=== PATIENT | male | born 2000 | race Caucasian/White ===

== ENCOUNTER → 2024-06-03 | Outpatient (CLI) | payer OTHER, SELFPAY ==
--- NOTE | 2024-06-03 09:18 | DI.ECHO.S_ITS ---
[facility] : : [address] : : [place] : : [id number] : : Phone: [phone] Echocardiogram Report + + :Name: JOSE DIETZ Study Date: 06/03/2024 Height: 73 in : :Hospital ReadingLocation: Weight: 180 lb : : Gender: Male BSA: 2.1 m2 : :: 2000 Age: 23 yrs BP: 130/71 mmHg: :Reason For Study: CHRONIC ISCHEMIC HEART DISEASE : :Ordering Physician: ALLY, : :MARIN Performed By: Maria Del Carmen Rodriguez : :Referring: MARIN CANALES : + + Interpretation Summary 1. The left ventricular contractility is normal. Estimated ejection fraction is greater than 55% with no segmental wall motion abnormalities. No LVH. Normal diastolic function. 2. The right ventricular contractility is normal. 3. All cardiac chambers are of normal size. 4. No significant valvular abnormalities. 5. No obvious intracardiac shunts. 6. No obvious intracardiac masses nor thrombi. 7. No hemodynamically significant pericardial effusion. 8. No echocardiographic evidence of elevated right-sided filling pressures. Conclusion: Normal biventricular function with no significant structural abnormalities. Procedure: A two-dimensional transthoracic echocardiogram with color flow and Doppler was performed. The study quality was technically adequate. There is no prior echocardiogram noted for this patient. The patient was in sinus bradycardia with heart rates between 53-63 bpm during the exam. Left Ventricle: The left ventricle is normal in size and wall thickness. The ejection fraction is estimated to be 55-60%. Right Ventricle: The right ventricle is normal in size and function. Atria: The left atrial size is normal. Right atrial size is normal. There is no Doppler evidence for an interatrial shunt. Mitral Valve: The mitral valve is normal in structure and function. There is no mitral regurgitation noted. Aortic Valve: The aortic valve is trileaflet. The aortic valve opens well. There is no aortic valve stenosis. No aortic regurgitation is present. Tricuspid Valve: The tricuspid valve is normal in structure and function. There is trace tricuspid regurgitation. Pulmonic Valve: The pulmonic valve is not well visualized. There is no pulmonic valvular regurgitation. Great Vessels: The aortic root is normal size. The dimensions of the ascending aorta are normal. The IVC is dilated (diameter is greater than 2.1 cm) yet it collapses greater than 50% with a sniff. This suggests a right atrial pressure of 8 mm Hg. Pericardium/ Pleura There is no pericardial effusion. There is no pleural effusion. MMode/2D Measurements & Calculations LVIDd: 5.2 cm LVOT diam: 2.0 cm LVIDs: 3.5 cm Ao root diam: 3.0 cm FS: 33.2 % asc Aorta Diam: 2.9 cm EPSS: 1.1 cm Ao Arch Diam (Prox Trans): 2.2 cm IVSd: 0.86 cm LVPWd: 0.88 cm LV manuel. diameter/BSA (cm/m^2): 2.5 LV sys. diameter/BSA (cm/m^2): 1.7 LA A2 area: 18.2 cm2 RA long axis: 4.7 cm LA A4 area: 14.1 cm2 RA area: 17.5 cm2 LA length (vol): 5.0 cm RA vol: 56.1 ml LA vol: 43.6 ml RA : 27.3 ml/m2 LA vol index: 21.2 ml/m2 IVC diam: 2.4 cm RVD1 (basal): 3.8 cm RVD2 (mid): 3.8 cm TAPSE: 2.1 cm Doppler Measurements & Calculations Ao V2 max: 119.6 cm/sec LVOT Max Denzel: 96.7 cm/sec Ao V2 mean: 79.7 cm/sec LV V1 max P.7 mmHg Ao max P.7 mmHg LV V1 VTI: 17.4 cm Ao mean P.9 mmHg PRICILLA(I,D): 2.4 cm2 Ao V2 VTI: 23.7 cm PRCIILLA(V,D): 2.6 cm2 sev ratio: 0.74 PRICILLA indexed to BSA (cm^2/m^2): 1.2 MV E max denzel: 79.8 cm/sec PA V2 max: 80.2 cm/sec MV A max denzel: 39.1 cm/sec PA V2 mean: 60.5 cm/sec MV E/A: 2.0 PA mean P.6 mmHg Med Peak E' Denzel: 13.6 cm/sec PA pr(Accel): 25.9 mmHg E/E' med: 5.8 Lat Peak E' Denzel: 16.8 cm/sec E/E' lat: 4.8 E/e' average: 5.3 MV dec time: 0.17 sec SV(LVOT): 56.8 ml Reading Physician:
== END ==
LOC: ECHO 09:17
PROVIDERS: Referring Provider Chiropractor; Visit Provider Chiropractor
DX: I25.9 Chronic ischemic heart disease, unspecified (principal)
CPT/HCPCS: 93306